=== PATIENT | male | born 1955 | race Caucasian/White ===

== ENCOUNTER 2021-05-04 22:19 | Inpatient (IN) ==
[2021-05-05] MEDS ORDERED: Naloxone 0.4 MG/ML INJ IVP PRN (01:13)
[2021-05-05] MEDS ORDERED: Acetaminophen 325 MG TABLET PO PRN (01:13)
[2021-05-05] MEDS ORDERED: Ondansetron 4 MG/2 ML VIAL IVP PRN (01:13)
[2021-05-05] MEDS ORDERED: Ipratropium/Albuterol Neb 3 ML IH PRN (01:42)
[2021-05-05 02:18] LABS: INR 1.2; Prothrombin Time 13.3 Seconds (9.4-12.1)
[2021-05-05 02:26] LABS: Basophils # 0.1 K/mcL (0.0-0.2); Basophils % 0.6 %; Eosinophils # 0.2 K/mcL (0.0-0.6); Eosinophils % 2.3 %; Hemoglobin 14.9 g/dL (12.9-16.9); Immature Granulocytes % 0.3 % (0-4); Lymphocytes # 1.7 K/mcL (0.6-4.6); Mean Corpuscular HGB Conc 32.4 g/dL (31.6-35.5); Mean Corpuscular Hemoglobin 29.3 pg (28.0-33.3); Mean Corpuscular Volume 90.4 fL (83.0-100.0); Mean Platelet Volume 9.7 fL (9.4-12.4); Monocytes # 0.7 K/mcL (0.0-1.3); Monocytes % 6.3 %; Neutrophils # 7.8 K/mcL (1.6-8.9); Platelet Count 238 K/mcL (140-400); Red Blood Count 5.09 M/mcL (4.19-5.50); Segmented Neutrophils % 74.5 %; White Blood Count 10.4 K/mcL (4.3-11.1)
[2021-05-05 02:37] LABS: Albumin 4.2 g/dL (3.5-5.7); Albumin/Globulin Ratio 1.4 (1.1-2.2); Bilirubin,Direct 0.2 mg/dL (0.0-0.2); Bilirubin,Indirect 0.4 mg/dL (0.0-1.0); Bilirubin,Total 0.6 mg/dL (0.3-1.0); Globulin 2.9 g/dL (2.4-3.5); Total Protein 7.1 g/dL (6.4-8.9)
[2021-05-05 02:38] LABS: BUN/Creatinine Ratio 12 (6-26); Blood Urea Nitrogen 12 mg/dL (8-23); C-Reactive Protein 15 mg/L (Less than 10); Calcium 9.3 mg/dL (8.6-10.3); Carbon Dioxide 24 mEq/L (23-29); Chloride 107 mEq/L (98-107); Chol/HDL Ratio 4.7 (0-4.9); Cholesterol 147 mg/dL (< 200); Glucose 101 mg/dL (70-105); HDL Cholesterol 31 mg/dL (40-59); LDL Cholesterol,Calculated 95 mg/dL (< 100); Magnesium 2.2 mg/dL (1.6-2.6); Osmolality,Calculated 286 (280-300); Sodium 138 mEq/L (136-145); Triglycerides 107 mg/dL (< 150); eGFR For African Americans > 60 (> 60); eGFR For Non-African Americans > 60 (> 60)
[2021-05-05 02:42] LABS: Thyroid Stimulating Hormone 4.644 mcIU/mL (0.340-5.600)
[2021-05-05] MEDS ORDERED: *HR* Metoprolol 5 MG/5 ML VIAL IVP PRN (02:52)
[2021-05-05] MEDS: Nicotine 7 MG PATCH.TD24 TD SCH (03:05)
[2021-05-05] MEDS ORDERED: *HR* Heparin 5,000 UNIT/ML VIAL IVP PRN (03:24)
[2021-05-05] MEDS ORDERED: Heparin 25,000UNIT/250ML 1/2NS 25,000 UNIT/250 ML IV.SOLN IVC SCH (03:30)
[2021-05-05] MEDS: Heparin 25,000 UNIT/250 ML 25,000 UNIT/250 ML IV.SOLN IVC SCH (04:34)
[2021-05-05 05:47] LABS: Bilirubin,Urine Negative (Negative); Blood,Urine Small (Negative); Clarity,Urine Clear (Clear); Color,Urine Light-Yellow (Yellow); Glucose,Urine (UA) Normal (Normal); Ketones,Urine Negative (Negative); Leukocyte Esterase,Urine Negative (Negative); Nitrite,Urine Negative (Negative); PH,Urine 5.5 pH Units (5.0-8.0); Protein,Urine Trace mg/dL (Neg-Trace); RBC,Urine 0-3 per hpf (0-3); Specific Gravity,Urine > 1.030 (1.010-1.025); Urobilinogen,Urine Normal (Normal); WBC,Urine 0-3 per hpf (0-3)
[2021-05-05 07:13] LABS: Adenovirus Not Detected (Not Detect); Bordetella Pertussis Not Detected (Not Detect); Chlamydophila pneumoniae Not Detected (Not Detect); Coronavirus 229E Not Detected (Not Detect); Coronavirus HKU1 Not Detected (Not Detect); Coronavirus NL63 Not Detected (Not Detect); Coronavirus OC43 Not Detected (Not Detect); Human Metapneumovirus Not Detected (Not Detect); Human Rhinovirus/Enterovirus Not Detected (Not Detect); Influenza A Subtype 2009 H1 Not Detected (Not Detect); Influenza B Not Detected (Not Detect); Mycoplasma pneumoniae Not Detected (Not Detect); Parainfluenza Virus 1 Not Detected (Not Detect); Parainfluenza Virus 2 Not Detected (Not Detect); Parainfluenza Virus 3 Not Detected (Not Detect); Parainfluenza Virus 4 Not Detected (Not Detect); Respiratory Syncytial Virus Not Detected (Not Detect); SARS-CoV-2 Not Detected (Not Detect)
[2021-05-05] MEDS: predniSONE 20 MG TABLET PO SCH (09:52)
[2021-05-05] MEDS: Cefepime HCl 2,000 MG in 0.9 % Sodium Chloride Mini Bag 100 ML IVPB SCH ×2 (11:03→17:26)
[2021-05-05] MEDS: Azithromycin 500 MG in 0.9 % Sodium Chloride 250 ML IVPB SCH (11:03)
[2021-05-05] MEDS: *HR* Heparin 5,000 UNIT/ML VIAL IVP PRN ×2 (11:17→18:13)
[2021-05-05 15:32] LABS: Total Protein,Pleural Fluid 3.3 g/dL
[2021-05-05 16:22] LABS: RBC,Pleural Fluid < 2000 RBC/mcL
[2021-05-05 17:03] LABS: Appearance of Pleural Fl Hazy (Clear)
[2021-05-06] MEDS: Cefepime HCl 2,000 MG in 0.9 % Sodium Chloride Mini Bag 100 ML IVPB SCH ×4 (00:17→23:14)
[2021-05-06] MEDS: Nicotine 7 MG PATCH.TD24 TD SCH (00:17)
[2021-05-06 00:54] LABS: Basophils % 0.1 %; Eosinophils % 0.1 %; Hematocrit 44.7 % (37.5-50.1); Hemoglobin 14.6 g/dL (12.9-16.9); Immature Granulocytes % 0.4 % (0-4); Lymphocytes # 1.2 K/mcL (0.6-4.6); Lymphocytes % 9.2 %; Mean Corpuscular HGB Conc 32.7 g/dL (31.6-35.5); Mean Corpuscular Volume 91.8 fL (83.0-100.0); Mean Platelet Volume 9.6 fL (9.4-12.4); Monocytes # 0.7 K/mcL (0.0-1.3); Monocytes % 4.9 %; Neutrophils # 11.5 K/mcL (1.6-8.9); Platelet Count 247 K/mcL (140-400); Red Blood Count 4.87 M/mcL (4.19-5.50); Red Cell Distribution Width 13.7 % (11.5-14.5); Segmented Neutrophils % 85.3 %; White Blood Count 13.5 K/mcL (4.3-11.1)
[2021-05-06 01:15] LABS: BUN/Creatinine Ratio 16 (6-26); Blood Urea Nitrogen 16 mg/dL (8-23); Carbon Dioxide 26 mEq/L (23-29); Chloride 106 mEq/L (98-107); Glucose 109 mg/dL (70-105); Osmolality,Calculated 286 (280-300); Potassium 4.6 mEq/L (3.5-5.1); Sodium 137 mEq/L (136-145); eGFR For African Americans > 60 (> 60); eGFR For Non-African Americans > 60 (> 60)
[2021-05-06] MEDS: Heparin 25,000 UNIT/250 ML 25,000 UNIT/250 ML IV.SOLN IVC SCH ×2 (04:33→22:11)
[2021-05-06] MEDS: Azithromycin 500 MG in 0.9 % Sodium Chloride 250 ML IVPB SCH (07:47)
[2021-05-06] MEDS: predniSONE 20 MG TABLET PO SCH (07:47)
[2021-05-06] MEDS ORDERED: Perflutren Lipid Microsphere 1.3 ML in 0.9 % Sodium Chloride 8.7 ML IVP PRN (08:24)
[2021-05-06] MEDS: Aspirin Enteric Coated 81 MG Tablet PO SCH (10:30)
[2021-05-06] MEDS ORDERED: *HR* LORazepam 1 MG TABLET PO ONE (20:17)
[2021-05-07] MEDS: Furosemide 40 MG/4 ML VIAL IVP SCH (07:33)
[2021-05-07] MEDS: Aspirin Enteric Coated 81 MG Tablet PO SCH (07:34)
[2021-05-07] MEDS: Metoprolol XL (24 HR) Succ 25 MG TAB.ER.24H PO SCH (07:34)
[2021-05-07] MEDS: Nicotine 7 MG PATCH.TD24 TD SCH (07:34)
[2021-05-07] MEDS: Azithromycin 500 MG in 0.9 % Sodium Chloride 250 ML IVPB SCH (07:35)
[2021-05-07] MEDS: predniSONE 20 MG TABLET PO SCH (07:35)
[2021-05-07] MEDS: Cefepime HCl 2,000 MG in 0.9 % Sodium Chloride Mini Bag 100 ML IVPB SCH (07:37)
[2021-05-07] MEDS: *HR* LORazepam 1 MG TABLET PO PRN (20:32)
[2021-05-08 07:55] LABS: Basophils # 0.1 K/mcL (0.0-0.2); Basophils % 0.5 %; Eosinophils # 0.2 K/mcL (0.0-0.6); Eosinophils % 1.9 %; Hematocrit 47.7 % (37.5-50.1); Immature Granulocytes % 0.3 % (0-4); Lymphocytes # 2.4 K/mcL (0.6-4.6); Lymphocytes % 20.4 %; Mean Corpuscular HGB Conc 31.4 g/dL (31.6-35.5); Mean Corpuscular Hemoglobin 29.1 pg (28.0-33.3); Mean Corpuscular Volume 92.4 fL (83.0-100.0); Mean Platelet Volume 10.3 fL (9.4-12.4); Monocytes # 0.8 K/mcL (0.0-1.3); Monocytes % 6.6 %; Neutrophils # 8.3 K/mcL (1.6-8.9); Platelet Count 242 K/mcL (140-400); Red Blood Count 5.16 M/mcL (4.19-5.50); Red Cell Distribution Width 13.7 % (11.5-14.5); Segmented Neutrophils % 70.3 %; White Blood Count 11.8 K/mcL (4.3-11.1)
[2021-05-08] MEDS ORDERED: Nicotine 7 MG PATCH.TD24 TD SCH (08:00)
[2021-05-08 08:05] LABS: BUN/Creatinine Ratio 23 (6-26); Blood Urea Nitrogen 25 mg/dL (8-23); Calcium 9.5 mg/dL (8.6-10.3); Carbon Dioxide 33 mEq/L (23-29); Chloride 104 mEq/L (98-107); Glucose 86 mg/dL (70-105); Osmolality,Calculated 298 (280-300); Potassium 3.7 mEq/L (3.5-5.1); Sodium 142 mEq/L (136-145); eGFR For African Americans > 60 (> 60); eGFR For Non-African Americans > 60 (> 60)
[2021-05-08 08:28] LABS: Fluid Source for Triglycerides PLEURAL FLUID; Triglycerides,Body Fluid 19 mg/dL
[2021-05-08] MEDS: Furosemide 40 MG/4 ML VIAL IVP SCH ×2 (08:34→08:45)
[2021-05-08] MEDS: predniSONE 20 MG TABLET PO SCH (08:35)
[2021-05-08] MEDS: Metoprolol XL (24 HR) Succ 25 MG TAB.ER.24H PO SCH (08:35)
[2021-05-08] MEDS: Aspirin Enteric Coated 81 MG Tablet PO SCH (08:45)
[2021-05-08] MEDS: *HR* LORazepam 1 MG TABLET PO PRN (08:56)
[2021-05-08 11:37] VITALS: BP 142/86; PULSE 82; TEMP 98; O2SAT 94
[2021-05-08] MEDS ORDERED: 0.9 % Sodium Chloride 1,000 ML ONE ×2 (13:33→13:36)
[2021-05-08] MEDS ORDERED: *HR* Heparin 10,000 UNIT/10 ML VIAL ONE (13:34)
[2021-05-08] MEDS ORDERED: Nitroglycerin 1,000 MCG/5 ML VIAL IV ONE (13:34)
[2021-05-08] MEDS ORDERED: Heparin 1,000 UNITS/500 mL 500 ML ONE (13:34)
[2021-05-08] MEDS ORDERED: ISOVUE-370 200 ML INFUS..BTL ONE (13:34)
[2021-05-08] MEDS ORDERED: *HR* FentaNYL (PF) 100 MCG/2 ML VIAL ONE (13:35)
[2021-05-08] MEDS ORDERED: *HR* Midazolam HCl 2 MG/2 ML VIAL ONE (13:36)
[2021-05-09] MEDS ORDERED: Furosemide 20 MG TABLET PO SCH (09:00)
[2021-05-09 22:18] LABS: Fluid Source for Cholesterol PLEURAL FLUID
[2021-05-10 07:12] LABS: Cholesterol,Body Fluid 48 mg/dL
== END 2021-05-08 18:30 | disposition home or self-care (01) | DRG 281 ==
LOC: 3NENU → OBSVTOIN 05-05 00:49 → SUATTDRO 05-05 00:49
PROVIDERS: ADMIT Student in an Organized Health Care Education/Training Program; ATTEND Student in an Organized Health Care Education/Training Program